=== PATIENT | female | born 1935 | race Caucasian/White ===

== ENCOUNTER 2019-01-02 16:55 | Observation (INO) ==
[2019-01-02] MEDS ORDERED: TYLENOL 325 MG TAB PO PRN (17:27)
[2019-01-02 18:15] LABS: BASOPHILS % (AUTO) 0.7 % (0.2-1.0); EOSINOPHILS # (AUTO) 0.1 x10^3/uL (0.0-0.2); EOSINOPHILS % (AUTO) 1.3 % (0.9-2.9); HEMATOCRIT 38.5 % (36.0-47.0); HEMOGLOBIN 13.2 g/dL (12.0-16.0); LYMPHOCYTES % (AUTO) 13.4 % (21.0-51.0); MEAN CORPUSCULAR HEMOGLOBIN 31.5 pg (27.0-34.0); MEAN CORPUSCULAR HGB CONC 34.3 g/dL (33.0-35.0); MEAN PLATELET VOLUME 7.7 fL (7.4-11.0); MONOCYTES # (AUTO) 0.4 x10^3/uL (0.3-0.8); MONOCYTES % (AUTO) 5.9 % (0.0-13.0); NEUTROPHILS # (AUTO) 5.7 x10^3/uL (2.2-4.8); NEUTROPHILS % (AUTO) 78.7 % (42.0-75.0); PLATELET COUNT 225 X10^3/uL (150.0-450.0); RED BLOOD COUNT 4.19 X10^6/uL (3.5-5.4); RED CELL DISTRIBUTION WIDTH 17.5 % (11.6-16.5); WHITE BLOOD COUNT 7.3 X10^3/uL (3.6-10.0)
[2019-01-02 18:28] VITALS: BMI 26.7
[2019-01-02 18:35] LABS: ALANINE AMINOTRANSFERASE 40 Units/L (12-78); ALKALINE PHOSPHATASE 152 Units/L (46-116); ASPARTATE AMINO TRANSFERASE 31 Units/L (15-37); BLOOD UREA NITROGEN 20 mg/dL (7-18); CALCIUM 10.1 mg/dL (8.5-10.1); CARBON DIOXIDE 30.5 mmol/L (21-32); CHLORIDE 100 mmol/L (98-107); COR NA(FOR HYPERGLY) 140 mmol/L (136-145); CREATININE 1.59 mg/dL (0.55-1.02); SODIUM 139 mmol/L (136-145); TOTAL PROTEIN 7.9 g/dL (6.4-8.2); TSH (3RD GENERATION) 3.123 uIU/mL (0.358-3.74); eGFR NON BLACK RACES 33 (>60)
[2019-01-02] MEDS ORDERED: NS 100 ML IV + SPIKE MINIBAG* 100 ML IV ONE (20:25)
[2019-01-02] MEDS: LR 1000 ML IV 1,000 ML IV SCH (22:16)
[2019-01-02] MEDS: ZOSYN VIAL 3.375 GRAMS IV SCH (22:17)
[2019-01-03] MEDS ORDERED: NS 100 ML IV + SPIKE MINIBAG* 100 ML IV ONE (01:51)
[2019-01-03] MEDS: ZOSYN VIAL 3.375 GRAMS IV SCH (02:40)
[2019-01-03] MEDS: LR 1000 ML IV 1,000 ML IV SCH ×4 (02:40→21:38)
[2019-01-03] MEDS ORDERED: ULTRAM PO PRN (07:59)
[2019-01-03] MEDS ORDERED: LASIX PO SCH (09:00)
[2019-01-03] MEDS ORDERED: GLUCOPHAGE PO SCH (09:00)
[2019-01-03] MEDS: K-DUR TAB 20 MEQ PO SCH (09:09)
[2019-01-03] MEDS: ZESTRIL TAB 20 MG PO SCH (09:09)
[2019-01-03] MEDS: CELEXA PO SCH (09:09)
[2019-01-03] MEDS: ZANTAC PO SCH ×2 (09:09→21:37)
[2019-01-03] MEDS: LOPRESSOR TAB 25 MG PO SCH ×2 (09:10→21:39)
[2019-01-03] MEDS ORDERED: PHARMACY CONSULT - DOSE _____ XX SCH (17:00)
[2019-01-03] MEDS ORDERED: ARICEPT TAB 10 MG PO SCH (21:00)
[2019-01-03] MEDS ORDERED: DESYREL PO SCH (21:00)
[2019-01-03] MEDS: ZOSYN VIAL 3.375 GRAMS 3.375 G in NS 100 ML IV + SPIKE MINIBAG* 100 ML IV SCH (21:35)
[2019-01-04] MEDS: LR 1000 ML IV 1,000 ML IV SCH (02:36)
[2019-01-04 05:18] LABS: BASOPHILS % (AUTO) 0.4 % (0.2-1.0); EOSINOPHILS # (AUTO) 0.1 x10^3/uL (0.0-0.2); EOSINOPHILS % (AUTO) 0.9 % (0.9-2.9); HEMATOCRIT 32.2 % (36.0-47.0); LYMPHOCYTES # (AUTO) 0.8 X10^3/uL (1.3-2.9); LYMPHOCYTES % (AUTO) 12.7 % (21.0-51.0); MEAN CORPUSCULAR HEMOGLOBIN 31.9 pg (27.0-34.0); MEAN CORPUSCULAR HGB CONC 34.9 g/dL (33.0-35.0); MEAN CORPUSCULAR VOLUME 91.5 fL (80.0-100.0); MEAN PLATELET VOLUME 7.8 fL (7.4-11.0); MONOCYTES # (AUTO) 0.3 x10^3/uL (0.3-0.8); MONOCYTES % (AUTO) 5.6 % (0.0-13.0); NEUTROPHILS # (AUTO) 4.9 x10^3/uL (2.2-4.8); NEUTROPHILS % (AUTO) 80.4 % (42.0-75.0); PLATELET COUNT 171 X10^3/uL (150.0-450.0); RED BLOOD COUNT 3.52 X10^6/uL (3.5-5.4); RED CELL DISTRIBUTION WIDTH 17.3 % (11.6-16.5); WHITE BLOOD COUNT 6.1 X10^3/uL (3.6-10.0)
[2019-01-04 05:30] LABS: ALANINE AMINOTRANSFERASE 28 Units/L (12-78); ALBUMIN 3.1 g/dL (3.4-5.0); ALKALINE PHOSPHATASE 101 Units/L (46-116); ASPARTATE AMINO TRANSFERASE 22 Units/L (15-37); BLOOD UREA NITROGEN 19 mg/dL (7-18); CALCIUM 9.1 mg/dL (8.5-10.1); CARBON DIOXIDE 25.9 mmol/L (21-32); CHLORIDE 104 mmol/L (98-107); COR CA(FOR HYPOALB) 9.8 mg/dL (8.5-10.1); CREATININE 1.21 mg/dL (0.55-1.02); SODIUM 137 mmol/L (136-145); TOTAL PROTEIN 6.2 g/dL (6.4-8.2); eGFR NON BLACK RACES 45 (>60)
[2019-01-04 05:47] LABS: HEMOGLOBIN 11.2 g/dL (12.0-16.0)
[2019-01-04] MEDS ORDERED: GLUCOPHAGE ONE (07:52)
[2019-01-04] MEDS ORDERED: ZESTRIL TAB 20 MG ONE (07:55)
[2019-01-04] MEDS ORDERED: GLUCOPHAGE XR PO SCH ×2 (09:00→21:00)
[2019-01-04] MEDS ORDERED: LOVENOX INJ 30 MG SYR SC SCH (09:00)
[2019-01-04] MEDS: CELEXA PO SCH (09:20)
[2019-01-04] MEDS: LOPRESSOR TAB 25 MG PO SCH (09:20)
[2019-01-04] MEDS: ZESTRIL TAB 20 MG PO SCH (09:21)
[2019-01-04] MEDS: ZANTAC PO SCH (09:21)
[2019-01-04] MEDS: K-DUR TAB 20 MEQ PO SCH (09:22)
[2019-01-04] MEDS ORDERED: GLUCOPHAGE XR PO ONE (09:22)
[2019-01-04] MEDS: ZOSYN VIAL 3.375 GRAMS 3.375 G in NS 100 ML IV + SPIKE MINIBAG* 100 ML IV SCH (09:24)
[2019-01-04 12:51] VITALS: BP 136/60
== END 2019-01-04 12:35 | disposition home or self-care (01) ==
LOC: MED/SURG
PROVIDERS: ADMIT Obstetrics & Gynecology Obstetrics; ATTEND Obstetrics & Gynecology Obstetrics
DX: I48.91 Unspecified atrial fibrillation; I50.9 Heart failure, unspecified; R41.82 Altered mental status, unspecified; R26.89 Other abnormalities of gait and mobility; N39.0 Urinary tract infection, site not specified; E03.8 Other specified hypothyroidism; B96.29 Other Escherichia coli [E. coli] as the cause of diseases classified elsewhere; D64.9 Anemia, unspecified; I11.0 Hypertensive heart disease with heart failure
CPT/HCPCS: 36415; 80053; 84443; 85025; 87086; 87088; 87186; 96367; 97110; 97116; 97162; 97166; 97530; 97535; A4222; G0378; J1650; J2543; J7050; J7120